=== PATIENT | male | born 1965 | race Hispanic/Latino ===

== ENCOUNTER 2017-11-08 09:49 | Emergency (ER) | payer SELFPAY ==
[~2017-11-08] VITALS: Ht 175.3 cm; Wt 75.0 kg
[~2017-11-08 09:49] MED LIST: NO HOME MEDS
[2017-11-08] MEDS ORDERED: MOTRIN400 MG PO (09:59)
[2017-11-08] MEDS ORDERED: VOLTAREN1%GEL TOP (09:59)
[2017-11-08 10:47] VITALS: BP 128/77
== END 2017-11-08 10:49 | disposition home or self-care (01) | DRG 563 ==
LOC: ED 09:49
DX: S86.919A Strain of unspecified muscle(s) and tendon(s) at lower leg level, unspecified leg, initial encounter (principal); W17.2XXA Fall into hole, initial encounter; Y93.H2 Activity, gardening and landscaping; Y92.007 Garden or yard of unspecified non-institutional (private) residence as the place of occurrence of the external cause